=== PATIENT | male | born 1960 | race Caucasian/White ===

== ENCOUNTER → 2017-04-04 | Outpatient (CLI) | payer MEDICARE ==
--- NOTE | ~2017-04-04 | CR170 ---
[facility] A Service of [facility] & [facility] RADIOLOGY TEXT RESULTS PATIENT: NORMA PATEL LOCATION: [facility] : 62 UNIT #: [id number] AGE: [address]: Andrei Burleson MD SEX: M ORDER DR: [id number] [facility] [address] [place], [place] [address] [id number] O MR#: [id number] Acc #: [id number] NAME: NORMA PATEL : 1960 SEX: M STUDY DATE/TIME: 04/04/2017 14:11 UNIT: [facility] ROOM: STUDY DESCRIPTION: CR Knee 2 Views Rt Attending Physician: Panfilo Burleson M.D. Referring Physician: Panfilo Burleson M.D. Ordering Physician: Panfilo Burleson M.D. Primary Care Physician: Dominick Light M.D. MEDICAL IMAGING REPORT This report is preliminary unless electronic signature is present EXAM Right knee INDICATION Pain in bilateral knees. Increased uptake seen on bone scan. The bone scan was done today. FINDINGS AP and lateral views of the right knee were obtained. There is no fracture or effusion visible. The bones are normal. IMPRESSION Normal right knee. Dictated by... Acosta Moreno M.D. THIS IS AN ELECTRONICALLY VERIFIED REPORT Acosta Moreno M.D. at 04/05/2017 2:52 PM NICOLÁS/michelle TD: 04/05/2017 07:26 JOB #: [id number] MEDICAL IMAGING REPORT Page 1 of 1 COPY
--- NOTE | ~2017-04-04 | CR21 ---
[facility] A Service of [facility] & [facility] RADIOLOGY TEXT RESULTS PATIENT: NORMA PATEL LOCATION: [facility] : 62 UNIT #: [id number] AGE: [address]: Andrei Burleson MD SEX: M ORDER DR: [id number] [facility] [address] [place], [place] [address] [id number] O MR#: [id number] Acc #: [id number] NAME: NORMA PATEL : 1960 SEX: M STUDY DATE/TIME: 04/04/2017 14:07 UNIT: [facility] ROOM: STUDY DESCRIPTION: CR Ankle Min 3 Views Rt Attending Physician: Panfilo Burleson M.D. Referring Physician: Panfilo Burleson M.D. Ordering Physician: Panfilo Burleson M.D. Primary Care Physician: Dominick Light M.D. MEDICAL IMAGING REPORT This report is preliminary unless electronic signature is present EXAM Right ankle. HISTORY Right ankle pain. Injury two to three weeks ago. Increased uptake on bone scan. TECHNIQUE Three views of the right ankle were obtained. FINDINGS There is minimal anterior spurring at the tibiotalar joint. The joint space is normal. There is no fracture. IMPRESSION Minimal anterior spurring from the anterior tibia. Otherwise study is normal. Dictated by... Acosta Moreno M.D. THIS IS AN ELECTRONICALLY VERIFIED REPORT Acosta Moreno M.D. at 04/05/2017 2:51 PM FEL/gz TD: 04/05/2017 10:29 JOB #: [id number] MEDICAL IMAGING REPORT Page 1 of 1 COPY
--- NOTE | ~2017-04-04 | CR127 ---
[facility] A Service of [facility] & [facility] RADIOLOGY TEXT RESULTS PATIENT: NORMA PATEL LOCATION: [facility] : 62 UNIT #: [id number] AGE: [address]: Andrei Burleson MD SEX: M ORDER DR: [id number] [facility] [address] [place], [place] [address] [id number] O MR#: [id number] Acc #: [id number] NAME: NORMA PATEL : 1960 SEX: M STUDY DATE/TIME: 04/04/2017 14:06 UNIT: [facility] ROOM: STUDY DESCRIPTION: CR Foot Complete Min 3 View Rt Attending Physician: Panfilo Burleson M.D. Referring Physician: Panfilo Burleson M.D. Ordering Physician: Panfilo Burleson M.D. Primary Care Physician: Dominick Light M.D. MEDICAL IMAGING REPORT This report is preliminary unless electronic signature is present EXAM Right foot INDICTIONS Correlate with abnormal uptake on bone scan. Right foot injury 2 to 3 weeks ago with pain in right foot. FINDINGS The tarsal, metatarsal, and phalangeal elements are all anatomically normal in position and alignment. There are no articular defects. No fractures or radiopaque foreign bodies in the soft tissues are apparent. IMPRESSION Normal foot. Dictated by... Acosta Moreno M.D. THIS IS AN ELECTRONICALLY VERIFIED REPORT Acosta Moreno M.D. at 04/05/2017 2:51 PM NICOLÁS/zev TD: 04/05/2017 10:30 JOB #: [id number] MEDICAL IMAGING REPORT Page 1 of 1 COPY
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
--- NOTE | ~2017-04-04 | CR169 ---
[facility] A Service of [facility] & [facility] RADIOLOGY TEXT RESULTS PATIENT: NORMA PATEL LOCATION: [facility] : 62 UNIT #: [id number] AGE: [address]: Andrei Burleson MD SEX: M ORDER DR: [id number] [facility] [address] [place], [place] [address] [id number] O MR#: [id number] Acc #: [id number] NAME: NORMA PATEL : 1960 SEX: M STUDY DATE/TIME: 04/04/2017 14:12 UNIT: [facility] ROOM: STUDY DESCRIPTION: CR Knee 2 Views Lt Attending Physician: Panfilo Burleson M.D. Referring Physician: Panfilo Burleson M.D. Ordering Physician: Panfilo Burleson M.D. Primary Care Physician: Dominick Light M.D. MEDICAL IMAGING REPORT This report is preliminary unless electronic signature is present EXAM Left knee HISTORY Pain in left knee for a long time with abnormal uptake on bone scan. FINDINGS AP and lateral projection of the knee shows smooth articular anatomy without indication of fracture or dislocation at the major weight-bearing surface of the knee. There is no indication of radiopaque foreign body about the knee surface or joint effusion. IMPRESSION Normal left knee. Dictated by... Acosta Moreno M.D. THIS IS AN ELECTRONICALLY VERIFIED REPORT Acosta Moreno M.D. at 04/05/2017 2:52 PM Jose TD: 04/05/2017 07:27 JOB #: [id number] MEDICAL IMAGING REPORT Page 1 of 1 COPY
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
--- NOTE | ~2017-04-04 | CR126 ---
[facility] A Service of [facility] & [facility] RADIOLOGY TEXT RESULTS PATIENT: NORMA PATEL LOCATION: [facility] : 62 UNIT #: [id number] AGE: [address]: Andrei Burleson MD SEX: M ORDER DR: [id number] [facility] [address] [place], [place] [address] [id number] O MR#: [id number] Acc #: [id number] NAME: NORMA PATEL : 1960 SEX: M STUDY DATE/TIME: 04/04/2017 14:08 UNIT: [facility] ROOM: STUDY DESCRIPTION: CR Foot Complete Min 3 View Lt Attending Physician: Panfilo Burleson M.D. Referring Physician: Panfilo Burleson M.D. Ordering Physician: Panfilo Burleson M.D. Primary Care Physician: Dominick Light M.D. MEDICAL IMAGING REPORT This report is preliminary unless electronic signature is present EXAM Left foot INDICTION Left foot pain with increased uptake on bone scan. FINDINGS Three views of the left foot were obtained. There may be some minimal degenerative change at the tarsometatarsal region seen on the lateral view. Otherwise the bones are normal. IMPRESSION There may be minimal tarsometatarsal degenerative change, otherwise normal. l Dictated by... Acosta Moreno M.D. THIS IS AN ELECTRONICALLY VERIFIED REPORT Acosta Moreno M.D. at 04/05/2017 2:51 PM NICOLÁS/zev TD: 04/05/2017 10:33 JOB #: [id number] MEDICAL IMAGING REPORT Page 1 of 1 COPY
== END | disposition home or self-care (01) ==
LOC: CNUC 08:00
DX: M25.561 Pain in right knee (principal); M25.562 Pain in left knee; M25.572 Pain in left ankle and joints of left foot; M25.571 Pain in right ankle and joints of right foot; M79.672 Pain in left foot; M79.671 Pain in right foot; M77.9 Enthesopathy, unspecified; R93.7 Abnormal findings on diagnostic imaging of other parts of musculoskeletal system
CPT/HCPCS: 73560; 73610; 73630; 78306; A9503